=== PATIENT | male | born 1970 | race African-American/Black ===

== ENCOUNTER 2020-07-28 06:47 | Emergency (ER) | payer MEDICAID ==
[~2020-07-28] VITALS: Ht 177.8 cm; Wt 94.8 kg
[2020-07-28] MEDS ORDERED: LABETALOL HCL 5 MG/ML 4ML SYRINGE IV ONE (07:00)
[2020-07-28] MEDS ORDERED: HYDROcodone-ACET 10/325MG TAB PO ONE (07:30)
[2020-07-28] MEDS ORDERED: hydrALAZINE HCL 20 MG/ML VL IV ONE (07:45)
[2020-07-28] MEDS ORDERED: amLODIPine BESYLATE 5 MG TAB PO ONE (07:45)
[2020-07-28 07:57] LABS: Basophils # (auto) 0.1 10 ^3/uL (0-0.2); Eosinophils # (auto) 0.2 10 ^3/uL (0-0.8); Eosinophils % (auto) 1.8 % (0.0-7.0); Hematocrit 42.5 % (41.0-53.0); Hemoglobin 14.4 g/dL (13.5-17.5); Lymphocytes # (auto) 2.7 10 ^3/uL (0.4-5.4); Lymphocytes % (auto) 27.5 % (10.0-50.0); Mean Corpuscular Hemoglobin 30.7 pg (28.0-32.0); Mean Corpuscular Hgb Conc. 33.8 g/dL (32.0-36.0); Mean Corpuscular Volume 90.9 fL (80.0-100.0); Monocytes # (auto) 0.7 10 ^3/uL (0-1.3); Neutrophils # (auto) 6.1 10 ^3/uL (1.6-8.6); Neutrophils % (auto) 62.7 % (37.0-80.0); Nucleated Red Blood Cells % 0.3 %; Platelet Count (auto) 263 10^3/uL (140-450); Red Blood Cells 4.67 10^6/uL (4.5-5.90); Red Cell Distribution Width 14.4 % (11.8-14.3); White Blood Cell 9.8 10^3/uL (4.4-10.8)
[2020-07-28 08:00] LABS: Albumin 3.4 g/dL (3.4-5.0); Anion Gap 9 (5-15); Blood Urea Nitrogen 10 mg/dL (7-18); Calcium 8.9 mg/dL (8.5-10.1); Carbon Dioxide 27 mmol/L (21-32); Chloride 104 mmol/L (98-107); Glucose 132 mg/dL (74-106); Potassium 3.8 mmol/L (3.5-5.1); Sodium 140 mmol/L (136-145)
[2020-07-28 08:02] LABS: Alanine Aminotransferase 35 U/L (16-61); Aspartate Aminotransferase 30 U/L (15-37); BUN/Creatinine Ratio 10.6; GFR African American 108 mL/min; GFR Non-African American 90 mL/min
[2020-07-28 08:08] LABS: Alkaline Phosphatase 109 U/L (45-117); Bilirubin, Total 0.2 mg/dL (0.2-1.0); Total Protein 7.6 g/dL (6.4-8.2)
[2020-07-28] MEDS ORDERED: cefTRIAXone 1GM/50ML D5W 50 ML IV ONE (08:45)
[2020-07-28] MEDS ORDERED: cloNIDine HCL 0.1 MG TAB PO ONE (10:30)
[2020-07-28 11:00] VITALS: BP 167/83
== END 2020-07-28 12:15 | disposition home or self-care (01) ==
LOC: ER 06:47
DX: J18.9 Pneumonia, unspecified organism (principal); R07.9 Chest pain, unspecified; I16.1 Hypertensive emergency; I10 Essential (primary) hypertension; Z20.822 Contact with and (suspected) exposure to COVID-19
CPT/HCPCS: 36415; 71045; 80053; 83880; 84484; 85025; 87426; 96365; 96375; 99284; J0360; J0696; J3490

== ENCOUNTER 2020-11-09 23:31 | Emergency (ER) | payer MEDICAID ==
[~2020-11-09] VITALS: Ht 175.3 cm; Wt 95.3 kg
[2020-11-10 00:09] LABS: Basophils # (auto) 0.2 10 ^3/uL (0-0.2); Eosinophils # (auto) 0.2 10 ^3/uL (0-0.8); Hematocrit 39.1 % (41.0-53.0); Hemoglobin 13.5 g/dL (13.5-17.5); Lymphocytes # (auto) 3.3 10 ^3/uL (0.4-5.4); Lymphocytes % (auto) 29.9 % (10.0-50.0); Mean Corpuscular Hemoglobin 30.6 pg (28.0-32.0); Mean Corpuscular Hgb Conc. 34.5 g/dL (32.0-36.0); Mean Corpuscular Volume 88.8 fL (80.0-100.0); Monocytes # (auto) 0.8 10 ^3/uL (0-1.3); Monocytes % (auto) 7.5 % (0.0-12.0); Neutrophils # (auto) 6.5 10 ^3/uL (1.6-8.6); Neutrophils % (auto) 58.6 % (37.0-80.0); Nucleated Red Blood Cells % 0.4 %; Red Cell Distribution Width 14.5 % (11.8-14.3); White Blood Cell 11.1 10^3/uL (4.4-10.8)
[2020-11-10 00:24] LABS: Albumin 3.6 g/dL (3.4-5.0); Anion Gap 7 (5-15); Blood Urea Nitrogen 12 mg/dL (7-18); Calcium 9.1 mg/dL (8.5-10.1); Carbon Dioxide 24 mmol/L (21-32); Chloride 108 mmol/L (98-107); Glucose 95 mg/dL (74-106); Sodium 139 mmol/L (136-145)
[2020-11-10 00:26] LABS: BUN/Creatinine Ratio 11.4; GFR African American 95 mL/min; GFR Non-African American 79 mL/min
[2020-11-10 00:31] LABS: Alanine Aminotransferase 49 U/L (16-61); Alkaline Phosphatase 110 U/L (45-117); Aspartate Aminotransferase 27 U/L (15-37); Bilirubin, Total 0.2 mg/dL (0.2-1.0); Total Protein 7.7 g/dL (6.4-8.2)
[2020-11-10 01:09] VITALS: BP 148/91
== END 2020-11-10 02:39 | disposition left against medical advice (07) ==
LOC: ER 23:31
DX: R07.89 Other chest pain (principal); J18.9 Pneumonia, unspecified organism; F17.200 Nicotine dependence, unspecified, uncomplicated; I10 Essential (primary) hypertension; R51.9 Headache, unspecified; E11.9 Type 2 diabetes mellitus without complications
CPT/HCPCS: 36415; 70450; 71046; 80053; 83880; 84484; 85025; 93005

== ENCOUNTER 2025-03-19 11:09 | Inpatient (IN) | payer MEDICAID ==
[~2025-03-19] VITALS: Ht 185.4 cm; Wt 82.6 kg
[2025-03-19 12:22] LABS: Hematocrit 42.6 % (41.0-53.0); Hemoglobin 14.0 g/dL (13.5-17.5); Mean Corpuscular Hemoglobin 29.0 pg (28.0-32.0); Mean Corpuscular Volume 88.4 fL (80.0-100.0); Nucleated Red Blood Cells % 0.2 %
[2025-03-19 12:26] LABS: Alanine Aminotransferase 39 U/L (7-40); Albumin 4.5 g/dL (3.2-4.8); Anion Gap 19 (5-15); BUN/Creatinine Ratio 11.3 (10.0-20.0); Blood Urea Nitrogen 13 mg/dL (9-23); Calcium 9.3 mg/dL (8.7-10.4); Chloride 102 mmol/L (98-107); Potassium 4.3 mmol/L (3.5-5.1); Sodium 138 mmol/L (136-145); Total Protein 7.8 g/dL (5.7-8.2)
[2025-03-19 12:27] LABS: Bilirubin, Total 0.3 mg/dL (0.2-1.0); INR 1.06 (0.9-1.15); Partial Thromboplastin Time 29.1 SEC (24.5-34.5); Prothrombin Time 11.2 sec (9.3-11.8)
[2025-03-19 12:28] LABS: Alkaline Phosphatase 134 U/L (46-116); Carbon Dioxide 17 mmol/L (20-31); Glucose 147 mg/dL (74-106)
[2025-03-19 12:32] LABS: Lactic Acid w/Reflex 5.3 mmol/L (0.4-2.0)
--- NOTE | 2025-03-19 12:51 | ED.PDOC ---
History of Present Illness HPI Comments 54 y/o M, with a history of DM and HTN, is BIBA from private residence for c/c of AMS. Per EMS personnel report, patient was found altered and unresponsive, this morning. On scene, he was found with an initial blood glucose of 48. All other vitals were noted to have been stable and within normal limits. Patient was given D10 en route. Upon arrival to ED, patient had a blood glucose of 147. 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 Chief Complaint: Hypoglycemia Time Seen by MD: 11:10 Primary Care Provider: MARKOSK Reviewed Notes: Nurses Notes, Industrial Staff Nurse Notes, Medications, Allergies Allergies: Coded Allergies: NO KNOWN ALLERGIES (Unverified , 10/03/13) Information Source: Patient, Emergency Med Personnel Mode of Arrival: EMS Severity: Moderate Timing: Hours Duration: Since onset Prehospital treatment: 12 Lead EKG, Living Advisor, Treatment (D10) Past Medical History PAST MEDICAL HISTORY: DM, HTN Surgical History: Denies all surgeries Family History Family History: Unknown Social History Smoker: Cigarettes, Less Than 1 Pack/Day Alcohol: Denies ETOH Use Drugs: Denies Drug Use Lives In: Home All Other Systems: Reviewed and Negative (Comprehensive review of systems are negative unless stated in HPI) Physical Exam General Appearance: No Apparent Distress, Normal HEENT: Normal ENT Inspection, Pharynx Normal, TMs Normal Neck: Full Range of Motion, Non-Tender, Normal, Normal Inspection Respiratory: Chest Non-Tender, Lungs Clear, No Accessory Muscle Use, No Re spiratory Distress, Normal Breath Sounds Cardiovascular: No Edema, No JVD, No Murmur, No Gallop, Normal Peripheral Pulses, Regular Rate/Rhythm Breast Exam: Deferred Gastrointestinal: No Organomegaly, Non Tender, No Pulsatile Mass, Normal Bowel Sounds, Soft Genitalia: Deferred Pelvic: Deferred Rectal: Deferred Extremities: No calf tenderness, Normal capillary refill, Normal inspection, Normal range of motion, Non-tender, No pedal edema Musculoskeletal : Apperance: Normal 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 Was a procedure done?: No Differential Dx Considerations may include: hypoglycemia, dehydration, electrolyte imbalance, encephalopathy, CVA vs TIA, among others X-Ray, Labs, Meds, VS Vital Signs Date Time Temp Pulse Resp B/P (MAP) Pulse Ox O2 Delivery O2 Flow Rate FiO2 03/19/25 12:18 78 15 141/93 (109) 96 03/19/25 12:18 Room Air* 0 21 Lab Test 03/19/25 13:21 03/19/25 11:20 Range/Units Lactic Acid Level Pending 5.3 *H 0.4-2.0 mmol/L White Blood Count 11.7 H 4.4-10.8 10^3/uL Red Blood Count 4.82 4.5-5.90 10^6/uL Hemoglobin 14.0 13.5-17.5 g/dL Hematocrit 42.6 41.0-53.0 % Mean Corpuscular Volume 88.4 80.0-100.0 fL Mean Corpuscular Hemoglobin 29.0 28.0-32.0 pg Mean Corpuscular Hemoglobin Concent 32.8 32.0-36.0 g/dL Red Cell Distribution Width 14.7 H 11.8-14.3 % Platelet Count 361 140-450 10^3/uL Mean Platelet Volume 7.4 6.9-10.8 fL Neutrophils (%) (Auto) 79.7 37.0-80.0 % Lymphocytes (%) (Auto) 16.3 10.0-50.0 % Monocytes (%) (Auto) 2.9 0.0-12.0 % Eosinophils (%) (Auto) 0.2 0.0-7.0 % Basophils (%) (Auto) 0.9 0.0-2.0 % Neutrophils # (Auto) 9.3 H 1.6-8.6 10 ^3/uL Lymphocytes # (Auto) 1.9 0.4-5.4 10 ^3/uL Monocytes # (Auto) 0.3 0-1.3 10 ^3/uL Eosinophils # (Auto) 0 0-0.8 10 ^3/uL Basophils # (Auto) 0.1 0-0.2 10 ^3/uL Nucleated Red Blood Cells 0.2 % Prothrombin Time 11.2 9.3-11.8 sec Prothrombin Time INR 1.06 0.9-1.15 Activated Partial Thromboplast Time 29.1 24.5-34.5 SEC Sodium Level 138 136-145 mmol/L Potassium Level 4.3 3.5-5.1 mmol/L Chloride Level 102 98-107 mmol/L Carbon Dioxide Level 17 L 20-31 mmol/L Anion Gap 19 H 5-15 Blood Urea Nitrogen 13 9-23 mg/dL Creatinine 1.15 0.700-1.30 mg/dL Glomerular Filtration Rate Calc 75 >90 mL/min BUN/Creatinine Ratio 11.3 10.0-20.0 Serum Glucose 147 H 74-106 mg/dL Calcium Level 9.3 8.7-10.4 mg/dL Total Bilirubin 0.3 0.2-1.0 mg/dL Aspartate Amino Transferase (AST) 34 13-40 U/L Alanine Aminotransferase (ALT) 39 7-40 U/L Alkaline Phosphatase 134 H 46-116 U/L Total Protein 7.8 5.7-8.2 g/dL Albumin 4.5 3.2-4.8 g/dL Current Medications Medications (Trade) Dose Ordered Sig/Delmis Route Start Time Stop Time Status Last Admin Vancomycin HCl 250 ml @ 250 mls/hr ONCE ONCE IV 03/19/25 11:15 03/19/25 12:14 DC 03/19/25 12:58 Sodium Chloride 1,000 ml @ 1,000 mls/hr Q1H ONCE IV 03/19/25 11:15 03/19/25 12:14 DC 03/19/25 12:56 Time of 1ST Reevaluation: 11:40 Reevaluation 1ST: Unchanged Patient Education/Counseling: Diagnosis, Treatment, Other (need for admission ) Family Education/Counseling: No Family Present SEPSIS Sepsis Screen Date sepsis recognized/suspect: Mar 19, 2025 Time Sepsis recognized/suspect: 1219 Recent Procedure: No On Antibiotic Therapy: No Respiratory Rate >20: No Heart Rate >90: No Temp<36 C (96.8 F) or >38.3 C: No SBP <90 or MAP <65 mmHG: No New Acute Mental Status Change: No Is the patient on CPAP, BIPAP,: No Physician Orders Urinalysis (03/19/25 11:13) Chest Portable (03/19/25 11:22) Accucheck (03/19/25 11:13) Blood Culture (03/19/25 11:13) Cefepime 1gm/50ml (Maxipime 1gm/50ml) (03/19/25 11:15) Notify Md If Map <65 Or Bp<90 (03/19/25 11:13) If Map<65 Start Vasopressor (03/19/25 11:13) Sepsis Reassesment After Fluid (03/19/25 12:13) Head Without Contrast (03/19/25 11:22) Vital Signs Date Time Temp Pulse Resp B/P (MAP) Pulse Ox O2 Delivery O2 Flow Rate FiO2 03/19/25 12:18 78 15 141/93 (109) 96 03/19/25 12:18 Room Air* 0 21 Laboratory Tests Test 03/19/25 11:20 03/19/25 13:21 Lactic Acid Level 5.3 mmol/L (0.4-2.0) *H Pending White Blood Count 11.7 10^3/uL (4.4-10.8) H Medications Medications Dose Ordered Sig/Delmis Route Start Time Stop Time Status Last Admin Dose Admin Sodium Chloride 1,000 ml @ 1,000 mls/hr Q1H ONCE IV 03/19/25 11:15 03/19/25 12:14 DC 03/19/25 12:56 Vancomycin HCl 250 ml @ 250 mls/hr ONCE ONCE IV 03/19/25 11:15 03/19/25 12:14 DC 03/19/25 12:58 Departure 1 Departure Time of Disposition: 13:42 (Patient with altered mental status generalized weakness. Labs CT scan and chest x-ray and EKG are benign. We will admit pat ient for further workup) Impression: Primary Impression: Acute metabolic encephalopathy Additional Impressions: Generalized weakness Syncope Disposition: 09 ADMITTED INPATIENT Admit to: Tele Condition: Guarded Critical Care Note Critical Care Time?: Yes Critical care comment: Altered mental status Authorized and Performed by: Nestor Robertson MD Total critical care time: Approximately 38 minutes Due to a high probability of clinically significant, life threatening deterioration, the patient required my highest level of preparedness to intervene emergently and I personally spent this critical care time directly and personally managing the patient. This critical care time included obtaining a history; examining the patient; pulse oximetry; ordering and review of studies; arranging urgent treatment with development of a management plan; evaluation of patient's response to treatment; frequent reassessment; and, discussions with other providers. This critical care time was performed to assess and manage the high probability of imminent, life-threatening deterioration that could result in multi-organ failure. It was exclusive of separately billable procedures and treating other patients and teaching time. Please see my other sections and the rest of the note for further information on patient assessment and treatment. Stability Stability form required: No Heart Score Heart Score: Heart Score Response (Comments) Value History N/A 0 EKG N/A 0 Age N/A 0 Risk Factors N/A 0 Troponin N/A 0 Total 0 I personally scribed for NESTOR ROBERTSON MD ([email or web address]) on 03/19/25 at 12:51. Electronically submitted by Keagan Caldwell ([email or web address]). NESTOR ROBERTSON MD Mar 19, 2025 12:51
[2025-03-19] MEDS: SODIUM CHLORIDE 0.9% 1,000 ML IV ONE ×2 (12:56→18:04)
[2025-03-19] MEDS: VANCOMYCIN 1GM/250ML KIT 250 ML IV ONE (12:58)
--- NOTE | 2025-03-19 12:59 | DVH ---
CT brain without contrast CLINICAL INDICATION: found down on blood thinners FINDINGS: The study was performed in a multidetector scanner. This study performed taking axial images from the skull base up to the vertex. Both brain and bone windows are photographed. Dose lowering techniques have been used including automated exposure control and adjustment of mA and/or KV according to patient size. No intraparenchymal or extra-axial hemorrhage. There is a well-defined crescent- shaped low-density area in the posterior limb of the left internal capsule probably due to an old infarct. No hydrocephalus. No midline shift. No calvarial fracture. Paranasal sinuses clear IMPRESSION: 1. No acute intracranial hemorrhage. 2. Old lacunar infarct right posterior periventricular white matter Computed Tomographic Radiation Dosimetry Report: Total CTDI vol = 60 mGy Total DLP = 11 19 mGy-cm All CT scans at this medical facility are performed using dose modulation techniques as appropriate to a performed exam including the following: Automated exposure control was utilized; adjustment of the MA and/or KvP according to patient size; and use of iterative reconstruction technique.
--- NOTE | 2025-03-19 13:03 | DVH ---
CLINICAL HISTORY: syncope TECHNIQUE: Single view of the chest was obtained. COMPARISON: XR CHEST 1 VIEW on DOS: 10/08/24, CHEST TWO VIEWS ROUTINE on DOS: 11/10/20, CHEST PORTABLE on DOS: 07/28/20 FINDINGS: The heart size and pulmonary vasculature are normal. The lungs are clear. IMPRESSION: NO ACUTE CARDIOPULMONARY PROCESS.
[2025-03-19] MEDS: CEFEPIME 1GM/50ML 50 ML IV ONE (13:58)
[2025-03-19 15:06] LABS: Urine Protein, UAD Negative (Negative)
[2025-03-19 17:00] VITALS: PULSE 88; RESP 17; O2SAT 98
[2025-03-19] MEDS: ONDANSETRON HCL 4 MG/2 ML VIAL IV ONE (18:04)
[2025-03-19] MEDS: DEXTROSE (50%) 50ML SYRG IV ONE (18:14)
[2025-03-19 19:00] LABS: Lactic Acid w/Reflex 3.4 mmol/L (0.4-2.0)
[2025-03-19] MEDS: hydrALAZINE HCL 20 MG/ML VL IV ONE (20:19)
[2025-03-19] MEDS ORDERED: ACETAMINOPHEN 325 MG TAB PO PRN (20:30)
[2025-03-19] MEDS ORDERED: DEXTROSE (50%) 50ML SYRG IV PRN (20:30)
[2025-03-19] MEDS ORDERED: DOCUSATE SOD 100 MG CAP PO PRN (20:30)
[2025-03-19] MEDS ORDERED: HYDROcodone-ACET 5/325MG TAB PO PRN (20:30)
[2025-03-19] MEDS ORDERED: ONDANSETRON HCL 4 MG/2 ML VIAL IV PRN (20:30)
[2025-03-19] MEDS: D5W/SOD CHLO 0.9% 1,000 ML IV SCH (20:46)
[2025-03-19] MEDS: ACCU-CHEK COMFORT CURVE STRIP VI SCH (21:49)
[2025-03-19] MEDS: InsuLIN REG 1unit/0.01ml Soln (100units/ml) SC SCH (21:50)
[2025-03-19] MEDS: ATORVASTATIN 20 MG TAB PO SCH (21:56)
[2025-03-19] MEDS: CARVEDILOL 12.5 MG TAB PO SCH (21:57)
--- NOTE | 2025-03-19 22:07 | DVHHP2 ---
History of Present Illness Reason for Visit: Acute metabolic encephalopathy History of Present Illness The patient is a 54-year-old male with past medical history of hyperlipidemia, hypertension and diabetes mellitus who presented to [facility] ED for evaluation of altered mental status. As reported by EMS, patient was found altered and unresponsive, this morning. On scene, he was found with an initial blood glucose of 48. All other vitals were noted to have been stable and within normal limits. Patient was given D10 en route to our facility ED. Patient was seen and evaluated in the ED, laboratory data shows WBC 11.7, platelets 361, sodium 138, potassium 4.3, BUN 13, creatinine 1.15, GFR 75, glucose 147, calcium 9.3, lactic acid 5.3 trending down to 3.4, blood pressure 162/97, heart rate 72, temperature 97.8 F, O2 saturation 99% on room air. Head CT showed no acute intracranial hemorrhage. Patient was started on IV antibiotic regimen vancom ycin, please see medication orders section in the computer. On my assessment, patient denied chest pain, no headache, dizziness, diaphoresis, shortness of breaths, no diarrhea, nausea, vomiting, fever, no chills. Patient was admitted for further evaluation and medical management. Past Medical History DM, HTN, HLD Past Surgical History Denies all surgeries Family History Reviewed, noncontributory to the management of this case. Past Social History The patient lives at home, smokes cigarettes less than 1 pack per day, denies alcohol or illicit drugs abuse. Review of Systems Constitutional: Yes: Weakness; No: Fever, Chills, Sweats, Malaise, Other Eyes: No: Pain, Vision change, Conjunctivae inflammation, Eyelid inflammation, Other, Redness ENT: No: Ear pain, Ear discharge, Nose pain, Nose discharge, Nose congestion, Mouth pain, Mouth swelling, Throat pain, Throat swelling, Other Respiratory: No: Cough, Dry, Shortness of breath, SOB with excertion, Wheezing, Hemoptysis, Pleuritic Pain, Sputum, Wheezing, Other Cardiovascular: No: Chest Pain, Palpitations, Orthopnea, Paroxysmal Noc. Dyspnea, Edema, Lt Headedness, Other Gastrointestinal: No: Nausea, Vomiting, Abdominal Pain, Diarrhea, Constipation, Melena, Hematochezia, Other Genitourinary: No Dysuria, No Frequency, No Incontinence, No Hematuria, No Retention, No Other Musculoskeletal: No: other, neck pain, shoulder pain, arm pain, back pain, hand pain, leg pain, foot pain Skin: No: Rash, Lesions, Jaundice, Bruising, Other Neurological: No: Weakness, Numbness, Incoordination, Change in speech, Confusion, Seizures, Other Allergies: Coded Allergies: NO KNOWN ALLERGIES (Unverified , 10/03/13) Medications Current Medications Medications Dose Ordered Sig/Delmis Route Start Time Stop Time Status Last Admin Dose Admin Losartan Potassium 50 mg DAILY PO 03/20/25 10:00 Atorvastatin Calcium 20 mg HS PO 03/19/25 22:00 03/19/25 21:56 20 MG Aspirin 81 mg DAILY PO 03/20/25 10:00 Clonidine HCl 0.1 mg Q4HP PRN PO 03/19/25 20:30 Carvedilol 12.5 mg Q12HR PO 03/19/25 22:00 03/19/25 21:57 12.5 MG Amlodipine Besylate 5 mg DAILY PO 03/20/25 10:00 Dextrose/Sodium Chloride 1,000 ml @ 75 mls/hr [id number] IV 03/19/25 20:30 03/19/25 20:46 75 MLS/HR Diagnostic Test (Pha) 1 strip ACHS 03/19/25 22:00 03/19/25 21:49 1 STRIP Insulin Human Regular ACHS SC 03/19/25 22:00 Dextrose 50 ml UD PRN IV 03/19/25 20:30 Acetaminophen/ Hydrocodone Bitart 1 tab Q4HP PRN PO 03/19/25 20:30 Ondansetron HCl 4 mg Q4HP PRN IV 03/19/25 20:30 Docusate Sodium 100 mg BIDPRN PRN PO 03/19/25 20:30 Acetaminophen 650 mg Q6HP PRN PO 03/19/25 20:30 Exam Vital Signs Vital Signs Date Time Temp Pulse Resp B/P (MAP) Pulse Ox O2 Delivery O2 Flow Rate FiO2 03/19/25 21:57 103 140/84 03/19/25 20:41 22 96 03/19/25 19:30 Room Air* 0 21 03/19/25 17:10 97.8 97.8 General Appearance: Alert, Oriented X3, Cooperative, No acute distress HEENT: Atraumatic, PERRLA, EOMI, Mucous membr. moist/pink Respiratory: Normal air movement Cardiovascular: Regular rate, Normal S1, Normal S2, No murmurs Abdominal: Normal bowel sounds, Soft, No tenderness, No hepatospenomegaly, No masses Extremities: No clubbing, No cyanosis, No edema, Normal pulses, No tenderness/swelling Skin: No rashes, No significant lesion Neuro: Normal speech, Normal tone, Sensation intact, Cranial nerves 3-12 NL, Reflexes 2+ Psych/Mental Status: Mental status NL, Mood NL Labs/Xrays Labs Test 03/19/25 21:47 03/19/25 18:15 03/19/25 14:36 03/19/25 11:20 Range/Units POC Glucose 71 70-106 mg/dl Lactic Acid Level 3.4 *H 0.4-2.0 mmol/L Urine Color Light-yellow Yellow Urine Clarity Clear Clear Urine pH 5.0 5.0-9.0 Urine Specific [place] 1.014 1.001-1.035 Urine Protein Negative Negative Urine Ketones 1+ H Negative Urine Blood Negative Negative /uL Urine Nitrite Negative Negative Urine Bilirubin Negative Negative Urine Urobilinogen Normal Negative mg/dL Urine Leukocyte Esterase Negative Negative /uL Urine RBC None seen 0 - 3 /hpf Urine Microscopic WBC 3 0-3 /HPF Urine Squamous Epithelial Cells None seen <5 /hpf Urine Bacteria None seen None Seen /hpf Urine Glucose Normal Normal mg/dL White Blood Count 11.7 H 4.4-10.8 10^3/uL Red Blood Count 4.82 4.5-5.90 10^6/uL Hemoglobin 14.0 13.5-17.5 g/dL Hematocrit 42.6 41.0-53.0 % Mean Corpuscular Volume 88.4 80.0-100.0 fL Mean Corpuscular Hemoglobin 29.0 28.0-32.0 pg Mean Corpuscular Hemoglobin Concent 32.8 32.0-36.0 g/dL Red Cell Distribution Width 14.7 H 11.8-14.3 % Platelet Count 361 140-450 10^3/uL Mean Platelet Volume 7.4 6.9-10.8 fL Neutrophils (%) (Auto) 79.7 37.0-80.0 % Lymphocytes (%) (Auto) 16.3 10.0-50.0 % Monocytes (%) (Auto) 2.9 0.0-12.0 % Eosinophils (%) (Auto) 0.2 0.0-7.0 % Basophils (%) (Auto) 0.9 0.0-2.0 % Neutrophils # (Auto) 9.3 H 1.6-8.6 10 ^3/uL Lymphocytes # (Auto) 1.9 0.4-5.4 10 ^3/uL Monocytes # (Auto) 0.3 0-1.3 10 ^3/uL Eosinophils # (Auto) 0 0-0.8 10 ^3/uL Basophils # (Auto) 0.1 0-0.2 10 ^3/uL Nucleated Red Blood Cells 0.2 % Prothrombin Time 11.2 9.3-11.8 sec Prothrombin Time INR 1.06 0.9-1.15 Activated Partial Thromboplast Time 29.1 24.5-34.5 SEC Sodium Level 138 136-145 mmol/L Potassium Level 4.3 3.5-5.1 mmol/L Chloride Level 102 98-107 mmol/L Carbon Dioxide Level 17 L 20-31 mmol/L Anion Gap 19 H 5-15 Blood Urea Nitrogen 13 9-23 mg/dL Creatinine 1.15 0.700-1.30 mg/dL Glomerular Filtration Rate Calc 75 >90 mL/min BUN/Creatinine Ratio 11.3 10.0-20.0 Serum Glucose 147 H 74-106 mg/dL Calcium Level 9.3 8.7-10.4 mg/dL Total Bilirubin 0.3 0.2-1.0 mg/dL Aspartate Amino Transferase (AST) 34 13-40 U/L Alanine Aminotransferase (ALT) 39 7-40 U/L Alkaline Phosphatase 134 H 46-116 U/L Total Protein 7.8 5.7-8.2 g/dL Albumin 4.5 3.2-4.8 g/dL PATIENT: ESPINOZA DELGADOTHYACCT: [id number] UNIT: [id number] : 1970 LOC: ER ROOM / BED: / AGE / SEX: 54 / M ADM STATUS: REG ER SERVICE 1122 ORDERING PHYSICIAN: NESTOR JEFFERY MD PROCEDURE(s): HWOCT - HEAD WITHOUT CONTRAST REASON: found down on blood thinners ORDER NUMBER(s): [id number], ACCESSION NUMBER(s): [id number] CT brain without contrast CLINICAL INDICATION: found down on blood thinners FINDINGS: The study was performed in a multidetector scanner. This study performed taking axial images from the skull base up to the vertex. Both brain and bone windows are photographed. Dose lowering techniques have been used including automated exposure control and adjustment of mA and/or KV according to patient size. No intraparenchymal or extra-axial hemorrhage. There is a well-defined crescent- shaped low-density area in the posterior limb of the left internal capsule probably due to an old infarct. No hydrocephalus. No midline shift. No calvarial fracture. Paranasal sinuses clear IMPRESSION: 1. No acute intracranial hemorrhage. 2. Old lacunar infarct right posterior periventricular white matter ORDERING PHYSICIAN: NESTOR JEFFERY MD PROCEDURE(s): CXRP - CHEST PORTABLE REASON: syncope ORDER NUMBER(s): [id number], ACCESSION NUMBER(s): [id number] CLINICAL HISTORY: syncope TECHNIQUE: Single view of the chest was obtained. COMPARISON: XR CHEST 1 VIEW on DOS: 10/08/24, CHEST TWO VIEWS ROUTINE on DOS: 11/10/20, CHEST PORTABLE on DOS: 07/28/20 FINDINGS: The heart size and pulmonary vasculature are normal. The lungs are clear. IMPRESSION: NO ACUTE CARDIOPULMONARY PROCESS. SEPSIS Sepsis Screen Date sepsis recognized/suspect: Mar 19, 2025 Time Sepsis recognized/suspect: 1929 Recent Procedure: No On Antibiotic Therapy: No Respiratory Rate >20: No Heart Rate >90: No Temp<36 C (96.8 F) or >38.3 C: No SBP <90 or MAP <65 mmHG: No New Acute Mental Status Change: No Is the patient on CPAP, BIPAP,: No Physician Orders Losartan Tablet (Cozaar Tablet) (03/20/25 10:00) Atorvastatin (Lipitor) (03/19/25 22:00) Aspirin Chewable Tablet (03/20/25 10:00) Clonidine Hcl Tablet (Catapres Tablet) (03/19/25 20:30) Carvedilol Tablet (Coreg Tablet) (03/19/25 22:00) Amlodipine Tablet (Norvasc Tablet) (03/20/25 10:00) Consistent Carb(Ccho)Diabetes (03/20/25 Breakfast) D5w/Sod Chlo 0.9% (D5w Ns 0.9%) (03/19/25 20:30) Glucose Blood (Accu-Chek Comfort Curve T (03/19/25 22:00) Insulin R (Human) (Insulin R) (03/19/25 22:00) Dextrose 50% Syringe (03/19/25 20:30) Allergies (03/19/25 20:21) Code Status (03/19/25 20:21) Oxygen Per Hour (03/19/25 20:21) Hydrocodone-Acet 5/325mg Tab (Patriot 5/32 (03/19/25 20:30) Ondansetron Hcl (Zofran) (03/19/25 20:30) Docusate Sodium Capsule (Colace Capsule) (03/19/25 20:30) Fall Risk Precautions In Place QSHIFT (03/19/25 20:21) Complete Blood Count (03/20/25 04:00) Comprehensive Metabolic Panel (03/20/25 04:00) Condition: Serious (03/19/25 20:21) Acetaminophen Tablet (Tylenol Tablet) (03/19/25 20:30) Maintain Bed Rest (03/19/25 20:21) Sequential Compression Device (03/19/25 ) Vital Signs Date Time Temp Pulse Resp B/P (MAP) Pulse Ox O2 Delivery O2 Flow Rate FiO2 03/19/25 21:57 103 140/84 03/19/25 20:41 100 22 157/90 (112) 96 03/19/25 20:19 181/103 03/19/25 19:30 Room Air* 0 21 03/19/25 19:00 90 15 168/93 (118) 95 03/19/25 17:10 97.8 72 14 124/72 99 97.8 03/19/25 17:00 88 17 98 Room Air* 0 21 03/19/25 17:00 98.4 88 17 163/97 (119) 98 98.4 Laboratory Tests Test 03/19/25 11:20 03/19/25 13:21 03/19/25 18:15 Lactic Acid Level 5.3 mmol/L (0.4-2.0) *H 5.0 mmol/L (0.4-2.0) *H 3.4 mmol/L (0.4-2.0) *H White Blood Count 11.7 10^3/uL (4.4-10.8) H Medications Medications Dose Ordered Sig/Delmis Route Start Time Stop Time Status Last Admin Dose Admin Atorvastatin Calcium 20 mg HS PO 03/19/25 22:00 03/19/25 21:56 20 MG Carvedilol 12.5 mg Q12HR PO 03/19/25 22:00 03/19/25 21:57 12.5 MG Cefepime HCl 50 ml @ 12.5 mls/hr ONCE ONCE IV 03/19/25 11:15 03/19/25 15:14 DC 03/19/25 13:58 12.5 MLS/HR Dextrose 50 ml ONCE ONCE IV 03/19/25 18:15 03/19/25 18:16 DC 03/19/25 18:14 50 ML Dextrose/Sodium Chloride 1,000 ml @ 75 mls/hr [id number] IV 03/19/25 20:30 03/19/25 20:46 75 MLS/HR Diagnostic Test (Pha) 1 strip ACHS 03/19/25 22:00 03/19/25 21:49 1 STRIP Hydralazine HCl 20 mg ONCE ONCE IV 03/19/25 20:15 03/19/25 20:16 DC 03/19/25 20:19 20 MG Ondansetron HCl 4 mg ONCE ONCE IV 03/19/25 18:00 03/19/25 18:01 DC 03/19/25 18:04 4 MG Sodium Chloride 1,000 ml @ 1,000 mls/hr Q1H ONCE IV 03/19/25 11:15 03/19/25 12:14 DC 03/19/25 12:56 1,000 MLS/HR Sodium Chloride 1,000 ml @ 1,000 mls/hr Q1H ONCE IV 03/19/25 18:15 03/19/25 19:14 DC 03/19/25 18:04 1,000 MLS/HR Vancomycin HCl 250 ml @ 250 mls/hr ONCE ONCE IV 03/19/25 11:15 03/19/25 12:14 DC 03/19/25 12:58 250 MLS/HR Assessment/Plan Assessment/Plan Acute metabolic encephalopathy Sepsis, unspecified organism Diabetes mellitus with hypoglycemia Generalized weakness Plan 1. Admit to telemetry unit 2. Breathing treatment 3. Pain control management 4. IV antibiotic management 5. Management of fluids and electrolytes 6. Consultation for hospitalist 7. Diagnostic test head CT 8. DVT prophylaxis on SCDs 9. Repeat labs CBC, CMP in a.m. 10. Home medication reviewed and reconciled 11. Continue with current medical management 12. Treatment plan discussed with patient and RN. Patient verbalized understanding. Plan discussed with: Patient, Other (RN) My Orders Orders - ALYSE TREVIÑO DNP Procedure Category Date Status Time Losartan Tablet PHA 03/20/25 In Process (Cozaar Tablet) 10:00 Atorvastatin (Lipitor) PHA 03/19/25 In Process 22:00 Aspirin Chewable PHA 03/20/25 In Process Tablet 10:00 Clonidine Hcl Tablet PHA 03/19/25 In Process (Catapres Tablet) 20:30 Carvedilol Tablet PHA 03/19/25 In Process (Coreg Tablet) 22:00 Amlodipine Tablet PHA 03/20/25 In Process (Norvasc Tablet) 10:00 Consistent DIET 03/20/25 Transmitted Carb(Ccho)Diabetes Breakfast D5w/Sod Chlo 0.9% PHA 03/19/25 In Process (D5w Ns 0.9%) 20:30 Glucose Blood PHA 03/19/25 In Process (Accu-Chek Comfort 22:00 Insulin R (Human) PHA 03/19/25 In Process (Insulin R) 22:00 Dextrose 50% Syringe PHA 03/19/25 In Process 20:30 Allergies ANTONELLA 03/19/25 In Process 20:21 Code Status CODE 03/19/25 Transmitted 20:21 Oxygen Per Hour RT 03/19/25 Transmitted 20:21 Hydrocodone-Acet PHA 03/19/25 In Process 5/325mg Tab (Patriot 20:30 Ondansetron Hcl PHA 03/19/25 In Process (Zofran) 20:30 Docusate Sodium PHA 03/19/25 In Process Capsule (Colace 20:30 Fall Risk Precautions ANTONELLA 03/19/[address] 20:21 Complete Blood Count LAB 03/20/25 Verified 04:00 Comprehensive LAB 03/20/25 Verified Metabolic Panel 04:00 Condition: Serious ANTONELLA 03/19/25 In Process 20:21 Acetaminophen Tablet PHA 03/19/25 In Process (Tylenol Tablet) 20:30 Maintain Bed Rest ANTONELLA 03/19/25 In Process 20:21 Sequential ANTONELLA 03/19/25 In Process Compression Device Problem List: (1) Acute metabolic encephalopathy (2) Sepsis, unspecified organism (3) Diabetes mellitus with hypoglycemia (4) Generalized weakness Date of Service: Mar 19, 2025 Billing Provider: ALYSE TREVIÑO DNP Common Visit Codes: [id number] INP/OBS CARE (HIGH) ALYSE TREVIÑO DNP Mar 19, 2025 22:07
[2025-03-19] MEDS ORDERED: MORPHINE SULFATE INJ 2 MG/ml SYRG IV PRN (22:15)
[2025-03-19] MEDS ORDERED: NITROGLYCERIN 0.4 MG SL TAB SL PRN (22:15)
[2025-03-20 00:21] VITALS: BP 170/86; PULSE 92; RESP 21; TEMP 98.3; O2SAT 96
[2025-03-20 01:00] VITALS: BP 170/86; PULSE 92; RESP 21; TEMP 98.3; O2SAT 96
[2025-03-20 01:51] VITALS: PULSE 98
[2025-03-20] MEDS ORDERED: VANCOMYCIN PER PHARMACY 0 MG IV SCH (05:30)
[2025-03-20 07:12] LABS: Hematocrit 38.7 % (41.0-53.0); Hemoglobin 13.2 g/dL (13.5-17.5); Mean Corpuscular Hemoglobin 29.5 pg (28.0-32.0); Mean Corpuscular Volume 86.3 fL (80.0-100.0); Nucleated Red Blood Cells % 0.0 %
[2025-03-20 07:22] LABS: Alanine Aminotransferase 33 U/L (7-40); Albumin 4.0 g/dL (3.2-4.8); Alkaline Phosphatase 115 U/L (46-116); Anion Gap 10 (5-15); BUN/Creatinine Ratio 14.6 (10.0-20.0); Blood Urea Nitrogen 14 mg/dL (9-23); Calcium 9.2 mg/dL (8.7-10.4); Carbon Dioxide 22 mmol/L (20-31); Chloride 107 mmol/L (98-107); Glucose 82 mg/dL (74-106); Potassium 4.0 mmol/L (3.5-5.1); Sodium 139 mmol/L (136-145); Total Protein 7.0 g/dL (5.7-8.2)
[2025-03-20 07:23] LABS: Bilirubin, Total 0.7 mg/dL (0.2-1.0)
[2025-03-20] MEDS ORDERED: LOSARTAN POTASSIUM 50 MG TAB PO SCH (10:00)
--- NOTE | 2025-03-20 16:58 | DVHDS2 ---
Discharge Summary Date of Admission Mar 19, 2025 at 22:06 Date of Discharge: Mar 20, 2025 Labs/Diagnostic Data: Laboratory Results Test 03/20/25 05:55 03/20/25 05:20 03/19/25 14:36 03/19/25 11:20 White Blood Count 8.7 10^3/uL (4.4-10.8) Red Blood Count 4.48 10^6/uL (4.5-5.90) Hemoglobin 13.2 g/dL (13.5-17.5) Hematocrit 38.7 % (41.0-53.0) Mean Corpuscular Volume 86.3 fL (80.0-100.0) Mean Corpuscular Hemoglobin 29.5 pg (28.0-32.0) Mean Corpuscular Hemoglobin Concent 34.2 g/dL (32.0-36.0) Red Cell Distribution Width 14.1 % (11.8-14.3) Platelet Count 354 10^3/uL (140-450) Mean Platelet Volume 7.6 fL (6.9-10.8) Neutrophils (%) (Auto) 66.4 % (37.0-80.0) Lymphocytes (%) (Auto) 26.1 % (10.0-50.0) Monocytes (%) (Auto) 6.1 % (0.0-12.0) Eosinophils (%) (Auto) 0.7 % (0.0-7.0) Basophils (%) (Auto) 0.7 % (0.0-2.0) Neutrophils # (Auto) 5.8 10 ^3/uL (1.6-8.6) Lymphocytes # (Auto) 2.3 10 ^3/uL (0.4-5.4) Monocytes # (Auto) 0.5 10 ^3/uL (0-1.3) Eosinophils # (Auto) 0.1 10 ^3/uL (0-0.8) Basophils # (Auto) 0.1 10 ^3/uL (0-0.2) Nucleated Red Blood Cells 0.0 % Sodium Level 139 mmol/L (136-145) Potassium Level 4.0 mmol/L (3.5-5.1) Chloride Level 107 mmol/L (98-107) Carbon Dioxide Level 22 mmol/L (20-31) Anion Gap 10 (5-15) Blood Urea Nitrogen 14 mg/dL (9-23) Creatinine 0.96 mg/dL (0.700-1.30) Glomerular Filtration Rate Calc 93 mL/min (>90) BUN/Creatinine Ratio 14.6 (10.0-20.0) Serum Glucose 82 mg/dL (74-106) Lactic Acid Level 1.3 mmol/L (0.4-2.0) Calcium Level 9.2 mg/dL (8.7-10.4) Total Bilirubin 0.7 mg/dL (0.2-1.0) Aspartate Amino Transferase (AST) 24 U/L (13-40) Alanine Aminotransferase (ALT) 33 U/L (7-40) Alkaline Phosphatase 115 U/L (46-116) Total Protein 7.0 g/dL (5.7-8.2) Albumin 4.0 g/dL (3.2-4.8) Random Vancomycin Level 3.5 ug/mL (5-10) POC Glucose 105 mg/dl (70-106) Urine Color Light-yellow (Yellow) Urine Clarity Clear (Clear) Urine pH 5.0 (5.0-9.0) Urine Specific [place] 1.014 (1.001-1.035) Urine Protein Negative (Negative) Urine Ketones 1+ (Negative) Urine Blood Negative /uL (Negative) Urine Nitrite Negative (Negative) Urine Bilirubin Negative (Negative) Urine Urobilinogen Normal mg/dL (Negative) Urine Leukocyte Esterase Negative /uL (Negative) Urine RBC None seen /hpf (0 - 3) Urine Microscopic WBC 3 /HPF (0-3) Urine Squamous Epithelial Cells None seen /hpf (<5) Urine Bacteria None seen /hpf (None Seen) Urine Glucose Normal mg/dL (Normal) Prothrombin Time 11.2 sec (9.3-11.8) Prothrombin Time INR 1.06 (0.9-1.15) Activated Partial Thromboplast Time 29.1 SEC (24.5-34.5) Other Laboratory Tests 03/20/25 05:55 Brief Hx & Hospital Course: The patient is a 54-year-old male with past medical history of hyperlipidemia, hypertension and diabetes mellitus who presented to [facility] ED for evaluation of altered mental status. As reported by EMS, patient was found altered and unresponsive, this morning. On scene, he was found with an initial blood glucose of 48. All other vitals were noted to have been stable and within normal limits. Patient was given D10 en route to our facility ED. Patient was seen and evaluated in the ED, laboratory data shows WBC 11.7, platelets 361, sodium 138, potassium 4.3, BUN 13, creatinine 1.15, GFR 75, glucose 147, calcium 9.3, lactic acid 5.3 trending down to 3.4, blood pressure 162/97, heart rate 72, temperature 97.8 F, O2 saturation 99% on room air. Head CT showed no acute intracranial hemorrhage. Patient was started on IV antibiotic regimen vancomycin, please see medication orders section in the computer. On my assessment, patient denied chest pain, no headache, dizziness, diaphoresis, shortness of breaths, no diarrhea, nausea, vomiting, fever, no chills. Patient was admitted for further evaluation and medical management. This patient was assigned to me. Patient left against medical advice before I came to see the patient. Condition at Discharge: Undetermined Final Diagnosis/Problems List 1.Acute metabolic encephalopathy 2. Symptomatic hypoglycemia 3. Patient left against medical advice. Discharge Disposition: AMA SNF Discharge Will this Physician continue t: No Discharge Statement: "Patient was advised to return to the ER or call 911 if any headaches, dizziness, shortness of breath, chest pain, abdominal pain, bleeding, fevers, or worsening of medical condition. Patient was counseled about treatment plan, medications, possible side effects, patientverbalized understanding. All questions were answered to the best of my ability. This discharge took greater then 30 minutes in planning, reviewing documentation, counseling the patient, and discussing with other team members." ASSESSMENT ASSESSMENT Assessment Date of Service: Mar 20, 2025 Billing Provider: CHELE BASILIO MD Common Visit Codes: 03236-OWF/OBS DISCH DAY <30MIN CHELE BASILIO MD Mar 20, 2025 16:58
--- NOTE | 2025-03-21 13:44 | ECG ---
[facility] Test Date: 2025-03-20 Test Time: 05:24:32 Pat Name: ESPINOZA DELGADO Department: Room: 0287T B Gender: M Vocational Trainer: magdalena : 1970 Requested By: CHELE BASILIO Order Number: [id number] Reading MD: Raul Aranda Measurements Intervals [place] Rate: 85 P: 60 NM: 158 QRS: 40 QRSD: 90 T: 133 QT: 360 QTc: 428 Interpretive Statements Sinus rhythm Nonspecific T abnormalities, lateral leads Electronically Signed On 03-24-2025 18:25:11 PST by Raul Arnada Please click the below link to view image of tracing.
== END 2025-03-20 10:00 | disposition left against medical advice (07) | DRG 720 ==
LOC: EDBD 11:09 → ER 11:09 → OVERFLOW 22:06 → TELE-WESTW 23:53
PROVIDERS: ADMIT Nurse Practitioner Family; ATTEND Nurse Practitioner Family
DX: A41.9 Sepsis, unspecified organism (principal); G93.41 Metabolic encephalopathy; I10 Essential (primary) hypertension; E11.649 Type 2 diabetes mellitus with hypoglycemia without coma; F17.210 Nicotine dependence, cigarettes, uncomplicated; Z53.29 Procedure and treatment not carried out because of patient's decision for other reasons; E78.5 Hyperlipidemia, unspecified
CPT/HCPCS: 36415; 70450; 71045; 80053; 80202; 81001; 82962; 83605; 85025; 85610; 85730; 87040; 93005; 96361; 96365; 96367; 96375; 99291; G0378; J2405